=== PATIENT | male | born 1990 | race African-American/Black ===

== ENCOUNTER 2019-08-18 14:56 | Emergency (ER) | payer OTHER ==
[~2019-08-18] VITALS: Ht 177.8 cm; Wt 72.6 kg
--- NOTE | ~2019-08-18 | EKG ---
[facility] [place] [address] ELECTROCARDIOGRAM REPORT Name: BI SYED Room #: [facility].#: [id number] Admission: 08/18/19 Attend Phys: Discharge: Date of : 89 Report #: [id number] THIS REPORT FOR: cc: KARIN Stroud family physician/PCP KARIN Stroud family physician/PCP Acacia Roger MD ~ THIS REPORT FOR: //name// [facility] ED Test Date: 2019-08-18 Test Time: 15:55:26 Pat Name: BI SYED Department: Room: Gender: M [employer]: SABAS : 1990 Requested By: Jerod Francis Order Number: [id number] MD: Measurements Intervals [place] Rate: 56 P: -23 ID: 106 QRS: 29 QRSD: 103 T: 45 QT: 404 QTc: 390 Interpretive Statements Sinus rhythm Short ID interval ST elevation suggests acute pericarditis No previous ECG available for comparison [email or web address] By: [id number] Epiphany Epiphany, MD /EPI
--- NOTE | ~2019-08-18 | EKG ---
[facility] [place] [email or web address] [address] ELECTROCARDIOGRAM REPORT Name: BI SYED Room #: [facility]..#: [id number] Admission: Attend Phys: Discharge: Date of : 89 Report #: [id number] THIS REPORT FOR: cc: KARIN Stroud family physician/PCP Acacia Roger MD ~ THIS REPORT FOR: //name// [facility] ED Test Date: 2019-08-18 Test Time: 14:59:54 Pat Name: BI SYED Department: Room: Gender: Saw [facility] 1990 Requested By: Jerod Francis Order Number: [id number] MD: Measurements Intervals [place] Rate: 64 P: 7 NC: 127 QRS: 49 QRSD: 97 T: 62 QT: 386 QTc: 399 Interpretive Statements Sinus rhythm RSR' in V1 or V2, probably normal variant Inferior infarct, acute (LCx) ST elevation, consider anterior injury Lateral leads are also involved No previous ECG available for comparison [email or web address] By: [id number] Epiphany Epiphany, /EPI
[~2019-08-18 14:56] MED LIST: FLONASE 0.05%50 MCG NASAL; NYQUIL D COLD295 ML; PENICILLIN V P500 MG PO; PREDNISONE 20 M20 M1 PO; PREDNISONE 5 MG5 MG PO; RID COMPLETE TP; TESSALON PERLE100 MG PO; TRAMADOL 50 MG50 MG PO; VENTOLIN HFA 1818 GM INH
[2019-08-18] MEDS ORDERED: NOHOMEMEDICATIONS (15:22)
[2019-08-18 15:25] LABS: HEMATOCRIT 46.4 % (42.0-52.0); HEMOGLOBIN 15.1 gm/dL (14.0-18.0); MCH 29.8 pg (26.0-34.0); MCHC 32.6 g/dL (28.0-37.0); MCV 91.3 fL (80.0-100.0); PLATELET COUNT 149 thou/uL (150-400); RBC 5.08 mil/uL (4.50-6.00); WBC 2.9 thou/uL (4.0-11.0)
[2019-08-18 15:38] LABS: ANION GAP 7 mmol/L (7-16); BUN 8 mg/dL (7-18); CHLORIDE 100 mmol/L (98-107); CO2 30 mmol/L (21-32); GLUCOSE 98 mg/dL (74-106); POTASSIUM 4.4 mmol/L (3.5-5.1); SODIUM 137 mmol/L (136-145)
[2019-08-18 15:48] LABS: ALBUMIN 4.4 g/dL (3.4-5.0); SGOT 31 U/L (15-37); SGPT 46 U/L (30-65); TOTAL BILIRUBIN 0.5 mg/dL (<0.1-1.0); TOTAL PROTEIN 8.2 g/dL (6.4-8.2); TROPONIN-I <0.06 ng/mL (<0.06)
[2019-08-18 15:52] LABS: LARGE PLATELETS RARE
[2019-08-18] MEDS ORDERED: IBUPROFEN 800800 M1 PO (16:44)
[2019-08-18 16:49] VITALS: BP 105/72
== END 2019-08-18 17:00 | disposition home or self-care (01) ==
LOC: ER 14:56
PROVIDERS: Physician Assistant
DX: R07.89 Other chest pain (principal); J45.909 Unspecified asthma, uncomplicated; Z87.891 Personal history of nicotine dependence